=== PATIENT | female | born 1980 | race Two or more races ===

== ENCOUNTER 2017-08-17 11:16 | Inpatient (IN) | payer BC ==
[~2017-08-17] VITALS: Ht 154.9 cm; Wt 76.0 kg
[2017-08-17] MEDS ORDERED: LIDOCAINE 1%, 20ML ONE (12:47)
[2017-08-17] MEDS ORDERED: NEWBORN KIT ONE (12:47)
[2017-08-17] MEDS ORDERED: OXYTOCIN 30U/ 0.9% NaCL 500ML 500 ML ONE (12:48)
[2017-08-17] MEDS ORDERED: MISOPROSTOL 25 MCG TABLET ONE (12:48)
[2017-08-17] MEDS ORDERED: MISOPROSTOL 200 MCG TABLET ONE (12:48)
[2017-08-17] MEDS ORDERED: D5%-LACTATED RINGERS 1,000 ML IV SCH (13:32)
[2017-08-17] MEDS ORDERED: OXYTOCIN 30U/ 0.9% NaCL 500ML 500 ML IV ONE (13:32)
[2017-08-17] MEDS ORDERED: TERBUTALINE 1 MG/ML, 1ML IVPush PRN (14:00)
[2017-08-17] MEDS ORDERED: ONDANSETRON 2MG/ML, 2ML IVPush PRN (14:00)
[2017-08-17] MEDS ORDERED: PENICILLIN GK 5,000,000 UNITS in DEXTROSE 5% 100 ML IVPB ONE (14:00)
[2017-08-17] MEDS ORDERED: MISOPROSTOL 25 MCG TABLET VG PRN (14:00)
[2017-08-17] MEDS ORDERED: FENTANYL PF 100 MCG/2ML IV PRN (14:00)
[2017-08-17 14:29] LABS: HEMATOCRIT 41.7 % (34.6-47.8); HEMOGLOBIN 14.3 g/dL (11.7-16.4); WHITE BLOOD COUNT 9.3 x10^3/uL (3.4-10)
[2017-08-17] MEDS ORDERED: PENICILLIN GK 2,500,000 UNITS in DEXTROSE 5% 100 ML IVPB SCH (18:00)
[2017-08-17] MEDS: LACTATED RINGERS 1,000 ML IV SCH (18:50)
[2017-08-17] MEDS ORDERED: ZOLPIDEM 5MG TABLET ONE (20:24)
[2017-08-17] MEDS ORDERED: ACETAMINOPHEN 325 MG TABLET ONE (20:24)
[2017-08-17] MEDS: ZOLPIDEM 5MG TABLET PO PRN ×2 (20:26→21:00)
[2017-08-17] MEDS ORDERED: ACETAMINOPHEN 325 MG TABLET PO PRN (21:00)
[2017-08-17] MEDS ORDERED: MAGNESIUM SULF. PMX 20GM/500ML 500 ML IV ONE (22:21)
[2017-08-18] MEDS ORDERED: ZOLPIDEM 5MG TABLET ONE (01:05)
[2017-08-18] MEDS ORDERED: FENTANYL PF 100 MCG/2ML ONE ×6 (02:43→17:50)
[2017-08-18] MEDS: FENTANYL PF 100 MCG/2ML IVPush PRN ×4 (02:47→07:31)
[2017-08-18] MEDS: LACTATED RINGERS 1,000 ML IV SCH ×5 (07:25→20:43)
[2017-08-18 07:54] VITALS: BP 131/68
[2017-08-18] MEDS ORDERED: BUPIVACAINE 0.25% ONE (08:04)
[2017-08-18] MEDS ORDERED: FENTANYL/BUPIV./NS/PF 250 ML EPIDCONT ONE (08:04)
[2017-08-18] MEDS ORDERED: TERBUTALINE 1 MG/ML, 1ML ONE (08:52)
[2017-08-18] MEDS ORDERED: FENTANYL/BUPIV./NS/PF 250 ML EPIDCONT SCH (09:17)
[2017-08-18] MEDS ORDERED: ONDANSETRON 2MG/ML, 2ML IVPush PRN ×2 (09:30→20:00)
[2017-08-18] MEDS ORDERED: LACTATED RINGERS 1,000 ML IVBOLUS PRN (09:30)
[2017-08-18] MEDS ORDERED: EPHEDRINE 50 MG/ML, 1ML IVPush PRN (09:30)
[2017-08-18] MEDS ORDERED: EPHEDRINE 50 MG/ML, 1ML ONE (09:53)
[2017-08-18] MEDS ORDERED: OXYTOCIN 30U/ 0.9% NaCL 500ML 500 ML IV PRN (10:31)
[2017-08-18] MEDS ORDERED: PREN1TAB60 PO (11:00)
[2017-08-18] MEDS ORDERED: ACETAMINOPHEN 325 MG TABLET ONE (13:43)
[2017-08-18] MEDS ORDERED: AMPICILLIN 2 GM in SODIUM CHLORIDE 0.9% 100 ML IV SCH (15:30)
[2017-08-18] MEDS ORDERED: CLINDAMYCIN PMX 900MG/50ML 50 ML IV SCH (15:30)
[2017-08-18] MEDS ORDERED: PHARMACOKINETIC MONITORING MC PRN (16:00)
[2017-08-18] MEDS ORDERED: PHARMACOKINETIC CONSULTATION MC ONE (16:00)
[2017-08-18] MEDS ORDERED: GENTAMICIN PER PHARMACY MC SCH (16:00)
[2017-08-18] MEDS ORDERED: GENTAMICIN 300 MG in SODIUM CHLORIDE 0.9% 100 ML IV SCH (17:00)
[2017-08-18] MEDS ORDERED: BUPIVACAINE/PF 0.25% ONE (17:49)
[2017-08-18] MEDS ORDERED: SODIUM CITRATE/CITRIC ACID 30 ML UDC ONE (17:55)
[2017-08-18] MEDS ORDERED: METOCLOPRAMIDE 5 MG/ML, 2ML ONE (17:55)
[2017-08-18] MEDS ORDERED: CLINDAMYCIN 150 MG/ML, 6ML ONE (18:25)
[2017-08-18] MEDS ORDERED: METOCLOPRAMIDE 5 MG/ML, 2ML IVPush ONE (18:30)
[2017-08-18] MEDS ORDERED: SODIUM CITRATE/CITRIC ACID 30 ML UDC PO ONE (18:30)
[2017-08-18] MEDS ORDERED: OXYTOCIN 10 UNITS/ML, 1ML ONE ×3 (18:45)
[2017-08-18] MEDS ORDERED: LIDOCAINE-MPF 2% ,5ML ONE ×2 (18:45)
[2017-08-18] MEDS ORDERED: morphine SULFATE/PF 0.5 MG/ML, 10ML ONE (19:02)
[2017-08-18] MEDS ORDERED: PROPOFOL 10 MG/ML, 20ML ONE (19:31)
[2017-08-18] MEDS ORDERED: KETOROLAC 30 MG/1 ML ONE (19:45)
[2017-08-18] MEDS ORDERED: OXYcodone 5 MG/5 ML ORAL.SOL UDC ONE (19:46)
[2017-08-18] MEDS ORDERED: OXYcodone 5 MG/5 ML ORAL.SOL UDC PO PRN (20:00)
[2017-08-18] MEDS: KETOROLAC 30 MG/1 ML IV PRN (20:10)
[2017-08-18] MEDS ORDERED: OXYTOCIN 30U/ 0.9% NaCL 500ML 500 ML ONE (20:39)
[2017-08-18 21:10] VITALS: BP 101/63
[2017-08-18] MEDS ORDERED: CALCIUM CARBONATE 500 MG TAB.CHEW PO PRN (21:30)
[2017-08-18] MEDS ORDERED: ACETAMINOPHEN 325 MG TABLET PO PRN ×2 (21:30)
[2017-08-18] MEDS ORDERED: KETOROLAC 30 MG/1 ML IV PRN (21:30)
[2017-08-18] MEDS ORDERED: ONDANSETRON 2MG/ML, 2ML IV PRN (21:30)
[2017-08-18] MEDS ORDERED: OXYcodone/APAP 5/325MG TABLET PO PRN (21:30)
[2017-08-19] MEDS: OXYcodone/APAP 5/325MG TABLET PO PRN ×4 (00:49→19:28)
[2017-08-19 00:50] VITALS: BP 97/58
[2017-08-19] MEDS: KETOROLAC 30 MG/1 ML IV PRN ×2 (02:44→10:08)
[2017-08-19 04:14] VITALS: BP 97/61
[2017-08-19 05:45] LABS: HEMATOCRIT 35.8 % (34.6-47.8); HEMOGLOBIN 12.1 g/dL (11.7-16.4)
[2017-08-19] MEDS: LACTATED RINGERS 1,000 ML IV SCH ×5 (07:00→23:00)
[2017-08-19] MEDS: OXYTOCIN 30U/ 0.9% NaCL 500ML 500 ML IV SCH ×2 (07:00→17:00)
[2017-08-19] MEDS ORDERED: PRENATAL VIT/IRON/FA 1 EACH TABLET ONE (07:16)
[2017-08-19] MEDS: DOCUSATE 100 MG CAPSULE PO PRN ×2 (07:21→19:28)
[2017-08-19] MEDS: PRENATAL VIT/IRON/FA 1 EACH TABLET PO SCH (07:21)
[2017-08-19 08:00] VITALS: BP 96/61
[2017-08-19] MEDS ORDERED: IBUP-1222 PO (08:05)
[2017-08-19] MEDS ORDERED: HYDR-3240 PO (08:06)
[2017-08-19 11:58] VITALS: BP 102/60
[2017-08-19] MEDS: IBUPROFEN 600 MG TABLET PO PRN (19:28)
[2017-08-19 19:30] VITALS: BP 108/60
[2017-08-20] MEDS: OXYcodone/APAP 5/325MG TABLET PO PRN ×2 (00:08→15:00)
[2017-08-20] MEDS: LACTATED RINGERS 1,000 ML IV SCH (03:00)
[2017-08-20] MEDS: OXYTOCIN 30U/ 0.9% NaCL 500ML 500 ML IV SCH (03:00)
[2017-08-20] MEDS ORDERED: IBUP-1222 PO (04:18)
[2017-08-20] MEDS ORDERED: OXYC-302 PO (04:18)
[2017-08-20] MEDS ORDERED: DOCU-131 PO (04:19)
[2017-08-20 08:00] VITALS: BP 110/62
[2017-08-20] MEDS: IBUPROFEN 600 MG TABLET PO PRN ×2 (08:06→15:00)
[2017-08-20] MEDS: DOCUSATE 100 MG CAPSULE PO PRN (08:06)
[2017-08-20] MEDS: PRENATAL VIT/IRON/FA 1 EACH TABLET PO SCH (08:07)
[2017-08-20] MEDS ORDERED: SIMETHICONE 80 MG CHEW TAB ONE (08:10)
== END 2017-08-20 15:35 | disposition home or self-care (01) | DRG 765 ==
LOC: LDOP 11:16 → LDIP 12:52 → 2NW 08-18 20:45
PROVIDERS: ADMIT Obstetrics & Gynecology; ATTEND Obstetrics & Gynecology
PROC: 10D00Z1 Extraction of Products of Conception, Low, Open Approach (ICD-10-PCS; principal; 2017-08-18)
DX: O41.03X0 Oligohydramnios, third trimester, not applicable or unspecified (principal); O36.5930 Maternal care for other known or suspected poor fetal growth, third trimester, not applicable or unspecified; N84.1 Polyp of cervix uteri; Z37.0 Single live birth; O34.43 Maternal care for other abnormalities of cervix, third trimester; O61.9 Failed induction of labor, unspecified; O77.9 Labor and delivery complicated by fetal stress, unspecified; Z3A.38 38 weeks gestation of pregnancy
CPT/HCPCS: 36415; 82803; 85025; 86850; 86900; J0290; J1885; J2274; J2540; J2704; J3010; J3490; J1580; J2590; J2765; J3105; J7120

== ENCOUNTER 2019-01-04 14:06 | Emergency (ER) | payer BC ==
[~2019-01-04] VITALS: Ht 152.4 cm; Wt 65.6 kg
[~2019-01-04 14:06] MED LIST: DOCU-131 PO; HYDR-3240 PO; IBUP-1222 PO; OXYC-302 PO; PREN1TAB60 PO
--- NOTE | 2019-01-04 14:13 | NUR ---
UA CUP GIVEN
--- NOTE | 2019-01-04 14:26 | NUR ---
UA SENT TO LAB
[2019-01-04 14:47] LABS: MICROSCOPIC AUTO
[2019-01-04 14:48] LABS: CULTURE INDICATED? NO
--- NOTE | 2019-01-04 15:27 | NUR ---
FIRST CONTACT WITH PT. Pt ambulates with steady gait and balance to ED room. Spouse at bedside. Pt c/o periumbillical pain and cramping, lower back/flank pain, urgency to pee, and not fully emptying bladder. Pt c/o these symptoms began today at 1300. Pt states she is 12 weeks , [address] Kim is OBGYN. Pt states she takes zofran for nausea. Pt denies blood in urine. Pt denies any vaginal bleeding. Pt denies any vaginal discharge. Pt connected to NIBP and continous pulse ox. NADN. One bedrail up for safety measures. Pt has call light within reach.
[2019-01-04] MEDS ORDERED: ONDA4TAB7 PO (15:34)
[2019-01-04 16:51] VITALS: BP 106/40
--- NOTE | 2019-01-04 16:51 | NUR ---
Patient given discharge instructions and they have confirmed that they understand the instructions. Patient ambulatory with steady gait. Pt left with d/c paperwork, prescriptions, and all personal belongings.
== END 2019-01-04 16:53 | disposition home or self-care (01) ==
LOC: ED 16:13
DX: O26.891 Other specified pregnancy related conditions, first trimester (principal); R30.0 Dysuria; R10.9 Unspecified abdominal pain; Z3A.12 12 weeks gestation of pregnancy
CPT/HCPCS: 76770; 81001; 87086; 99284

== ENCOUNTER 2019-02-14 10:54 | Outpatient (CLI) | payer BC ==
[~2019-02-14] VITALS: Ht 154.9 cm; Wt 66.4 kg
[~2019-02-14 10:54] MED LIST changes: +ONDA4TAB7 PO
[2019-02-14 11:32] VITALS: BP 106/63
[2019-02-14 11:45] LABS: MICROSCOPIC NOT IND
== END 2019-02-14 12:00 | disposition home or self-care (01) ==
LOC: LDOP 10:54
PROVIDERS: ATTEND Obstetrics & Gynecology
DX: O09.522 Supervision of elderly multigravida, second trimester (principal); O36.8120 Decreased fetal movements, second trimester, not applicable or unspecified; Z3A.18 18 weeks gestation of pregnancy
CPT/HCPCS: 81003; 87086; 87147; 99211; G0463

== ENCOUNTER 2019-03-10 14:00 | Outpatient (CLI) | payer BC ==
[~2019-03-10] VITALS: Ht 154.9 cm; Wt 69.0 kg
[2019-03-10 15:12] VITALS: BP 101/56
[2019-03-10] MEDS ORDERED: PREN1TAB10 PO (16:39)
== END 2019-03-10 16:55 | disposition home or self-care (01) ==
LOC: LDOP 14:00
PROVIDERS: ATTEND Obstetrics & Gynecology
DX: O9A.213 Injury, poisoning and certain other consequences of external causes complicating pregnancy, third trimester (principal); O32.1XX0 Maternal care for breech presentation, not applicable or unspecified; S39.91XA Unspecified injury of abdomen, initial encounter; Z3A.21 21 weeks gestation of pregnancy; W50.1XXA Accidental kick by another person, initial encounter; Y93.89 Activity, other specified; Y92.89 Other specified places as the place of occurrence of the external cause; Y99.8 Other external cause status
CPT/HCPCS: 36415; 76815; 85460; 99211; G0463